=== PATIENT | male | born 2000 | race Caucasian/White ===

== ENCOUNTER 2021-06-24 21:34 | Emergency (ER) | payer OTHER ==
[~2021-06-24] VITALS: Ht 165.1 cm; Wt 77.1 kg
--- NOTE | 2021-06-24 21:54 | PHYS DOC ---
Adult General Chief Complaint Chief Complaint: TESTICULAR PAIN OR INJURY [facility] HPI Patient is a 21-year-old male presenting for right testicle pain. Onset was this morning without any known inciting event, trauma, ingestion, sexual or other physical activity, recent sick contact or travel. Nothing known makes better, physical movement and palpation make worse. Pain is focal and dull to right testicle without radiation. Timing of symptoms of been constant since onset. Has not had any fever, no abdominal pain or dysuria. Admits he is not currently sexually active. Does disclose that in 2015 he presented for similar symptoms at our facility and had ultrasound performed concerning for right epididymitis that was treated with antibiotics and improved. No other intra- abdominal or surgeries or abnormalities Review of Systems Review of Systems Fourteen body systems of review of systems have been reviewed. See HPI for pertinent positives and negative responses, other durbin all other systems are negative, non-pertinent or non-contributory Physical Exam Physical Exam Constitutional: Well developed, well nourished, no acute distress, non-toxic appearance. HENT: Normocephalic, atraumatic, bilateral external ears normal, oropharynx moist, no oral exudates, nose normal. Eyes: PERRLA, EOMI, conjunctiva normal, no discharge. Neck: Normal range of motion, no tenderness, supple, no stridor. Cardiovascular: Heart rate regular, sinus rhythm, no murmurs rubs or gallops Lungs & Thorax: Bilateral breath sounds clear to auscultation Abdomen: Bowel sounds normal, soft, no tenderness, no masses, no pulsatile masses. Nonsurgical abdomen, no peritoneal signs : Unremarkable external examination of genitalia, no suprapubic tenderness to palpation, no palpable inguinal canal abnormalities bilaterally, penis circumcised without drainage or palpable or visual abnormalities, bilateral t esticles descended, left testicle unremarkable, tenderness palpation on lateral portion of testicle without any concerning abnormalities such as cordlike ropey structures on posterior aspect of testicle or edema Skin: Warm, dry, no erythema, no rash. Back: No tenderness, no CVA tenderness. Extremities: No tenderness, no cyanosis, no clubbing, ROM intact, no edema. Neurologic: Alert and oriented X 3, grossly normal motor & sensory function, no focal deficits noted. Psychologic: Affect normal, judgement normal, mood normal. Current Patient Data Vital Signs Vital Signs Date Time Temp Pulse Resp B/P (MAP) Pulse Ox O2 Delivery O2 Flow Rate FiO2 06/24/21 21:40 98.7 83 18 132/97 (109) 97 Vital Signs Date Time Temp Pulse Resp B/P (MAP) Pulse Ox O2 Delivery O2 Flow Rate FiO2 06/24/21 21:40 98.7 83 18 132/97 (109) 97 Lab Results Laboratory Tests Test 06/24/21 21:46 Urine Collection Type Unknown Urine Color Yellow Urine Clarity Clear Urine pH 7.0 Urine Specific [place] 1.020 Urine Protein Neg Urine Glucose (UA) Neg mg/dL Urine Ketones (Stick) Trace mg/dL Urine Blood Neg Urine Nitrite Neg Urine Bilirubin Neg Urine Urobilinogen Dipstick 1.0 mg/dL Urine Leukocyte Esterase Neg Urine RBC 1-2 /HPF Urine WBC 1-4 /HPF Urine Squamous Epithelial Cells None /LPF Urine Bacteria Few /HPF Urine Mucus Slight /LPF EKG EKG [] Radiology/Procedures Radiology/Procedures CLINICAL HISTORY: Reason: rt testicle pain / Spl. Instructions: / History: COMPARISON: None available. TECHNIQUE: Ultrasound images of the scrotum was performed with castillo-scale and color doppler. FINDINGS: The right testicle measures 5.2 x 2.3 x 2.9 cm. The left testicle measures 4.8 x 2.1 x 3.1 cm. There is no intratesticular abnormality. Testicular vascularity is symmetric and within normal limits. The epididymides are normal in vascularity. There are right epididymal cysts measuring 1.3 x 1.5 x 0.8 cm and 1.1 x 1.4 x 0.7 cm. There is no hydrocele or varicocele. No scrotal hyperemia or thickening is identified. IMPRESSION: 1. There are 2 moderate-sized right epididymal head cysts or spermatoceles. 2. The testicles are normal. Electronically signed by: Juancarlos Evans MD (06/25/2021 12:45 AM) [facility] Heart Score C/O Chest Pain: No Risk Factors: Risk Factors: DM, Current or recent (<one month) smoker, HTN, HLP, family history of CAD, obesity. Risk Scores: Risk Factors: DM, Current or recent (<one month) smoker, HTN, HLP, family history of CAD, obesity. Course & Med Decision Making Course & Med Decision Making ABCs unremarkable HPI physical exam and comprehensive ER work-up nonconcerning for any emergent or surgical issues X2 right epididymal cyst discussed with patient, likely benign and self-limiting in etiology. Continued supportive care practices and close outpatient follow- up advised Reina Disclaimer Reina Disclaimer This electronic medical record was generated, in whole or in part, using a voice recognition dictation system. Departure Departure: Impression: Primary Impression: Testicle pain Disposition: HOME / SELF CARE / HOMELESS Condition: STABLE Referrals: AUGIE RAYMUNDO MD (PCP) Additional Instructions: As discussed prior to ER departure, your vitals, physical exam and ultrasound of testicles were unremarkable for any emergent or surgical issues. You are not having a testicular torsion which is a surgical emergency or have any other findings indicative of need for further ER work-up or hospital transfer. There were found to be x2 epididymal cysts on your right testicle that are nonconcerning in etiology. Continued supportive care practices with ibuprofen and/or Tylenol as needed for pain recommended. Please contact your primary care physician first thing in the morning to review ER visit today and need for close outpatient follow-up as urology consultation might be indicated if your symptoms do not resolve. Any concerning signs or symptoms present prior to outpatient follow-up please do not hesitate to come back for repeat evaluation. It was a pleasure to take care of you and I wish you the best going forward ASHKAN GRANADO DO Jun 24, 2021 21:54
[2021-06-24 23:03] LABS: BACTERIA,URINE FEW /HPF (0-FEW); BILIRUBIN,URINE NEG (NEG); CLARITY,URINE CLEAR; COLOR,URINE YELLOW; GLUCOSE,URINE NEG (NEG); NITRITE,URINE NEG (NEG)
--- NOTE | 2021-06-25 00:47 | RAD ---
CLINICAL HISTORY: Reason: rt testicle pain / Spl. Instructions: / History: COMPARISON: None available. TECHNIQUE: Ultrasound images of the scrotum was performed with castillo-scale and color doppler. FINDINGS: The right testicle measures 5.2 x 2.3 x 2.9 cm. The left testicle measures 4.8 x 2.1 x 3.1 cm. There is no intratesticular abnormality. Testicular vascularity is symmetric and within normal limit s. The epididymides are normal in vascularity. There are right epididymal cysts measuring 1.3 x 1.5 x 0. 8 cm and 1.1 x 1.4 x 0.7 cm. There is no hydrocele or varicocele. No scrotal hyperemia or thickening is identified. IMPRESSION: 1. There are 2 moderate-sized right epididymal head cysts or spermatoceles. 2. The testicles are normal. Electronically signed by: Juancarlos Evans MD (06/25/2021 12:45 AM) [facility]
[2021-06-25 01:10] VITALS: BP 144/90
== END 2021-06-25 01:10 | disposition home or self-care (01) ==
LOC: ER 21:34
DX: N50.811 Right testicular pain (principal)
CPT/HCPCS: 36415; 76870; 81001; 87491; 87591; 99284